=== PATIENT | male | born 1995 | race Caucasian/White ===

== ENCOUNTER 2016-10-01 14:14 | Emergency (ER) | payer OTHER ==
[~2016-10-01] VITALS: Ht 177.8 cm; Wt 63.0 kg
[2016-10-01] MEDS ORDERED: LORTAB 5-325 MG1 TAB PO (14:38)
[2016-10-01] MEDS ORDERED: PENICILLN VK500 MG PO (14:38)
[2016-10-01 14:43] VITALS: BP 139/74
== END 2016-10-01 14:43 | disposition home or self-care (01) | DRG 159 ==
LOC: ED 14:14
DX: K08.89 Other specified disorders of teeth and supporting structures (principal)